=== PATIENT | male | born 2000 | race Caucasian/White ===

== ENCOUNTER 2022-01-02 05:32 | Emergency (ER) | payer MEDICAID ==
[~2022-01-02] VITALS: Ht 188 cm; Wt 90.7 kg
[2022-01-02 05:46] VITALS: BP_SYST 129
--- NOTE | 2022-01-02 06:05 | NUR ---
Pt placed to ER bed 07 via W/C. Pt report given to DAVID Delaney.
--- NOTE | 2022-01-02 06:05 | NUR ---
Kandis castro in [facility] - 01/02/22 at 0612 by SAMANTHA Pt placed to bed 07 via W/C.
--- NOTE | 2022-01-02 06:08 | NUR ---
Pt to bed 7 via w/c at this time w/ c/o right lateral knee pain radiating to right lateral finn s/p twisting laterally with force while playing basketball. Mild swelling to knee. Pt states pain 02/25. Pt unable to bear weight on right leg. at bedside
--- NOTE | 2022-01-02 06:08 | NUR ---
Dr. Rodríguez at bedside assessing pt.
[2022-01-02] MEDS ORDERED: IBUPROFEN 800 MG TABLET PO ONE (06:30)
[2022-01-02] MEDS ORDERED: IBUP-1969 PO (06:56)
--- NOTE | 2022-01-02 07:16 | NUR ---
Patient given written and verbal discharge instructions and verbalizes understanding. ER MD discussed with patient the results and treatment provided. Patient in stable condition. . Patient educated on pain management and to follow up with PMD. Pain Scale 6/10. Opportunity for questions provided and answered. Medication side effect fact sheet provided. Patient educated on use of knee immobilizer AND crutches.
[2022-01-02 07:17] VITALS: BP_SYST 126
== END 2022-01-02 07:16 | disposition home or self-care (01) ==
LOC: SED 05:32
DX: M25.561 Pain in right knee (principal); M25.571 Pain in right ankle and joints of right foot; I10 Essential (primary) hypertension
CPT/HCPCS: 73564; 99284